=== PATIENT | female | born 1985 | race Caucasian/White ===

== ENCOUNTER 2016-10-25 16:25 | Observation (INO) ==
[2016-10-25] MEDS ORDERED: ONDANSETRON 4 MG/2 ML VIAL IV STA (17:14)
[2016-10-25] MEDS ORDERED: SODIUM CHLORIDE 0.9% 500 ML IV STA (17:14)
--- NOTE | 2016-10-25 17:18 | Emergency Department Note ---
Arrival - Arrival Chief Complaint: Urogenital - Female Stated Complaint: 5wks /blacked out ED Nursing Triage Note: NEAR SYNCOPE, APPROX 5 WEEKS GESTATION, LIGHT BLEEDING FOR COUPLE OF DAYS, BLEEDING WORSE TODAY. G1 Mode of Arrival: Wheelchair Limitations: No Limitations Source: Patient Time Seen by Provider: 10/25/16 17:14 - History of Present Illness HPI Narrative: This 31-year-old white female 6 weeks presents with a history of 1 week of intermittent vaginal spotting and bleeding. She initially had some spotting 1 week ago which within 24 hours became brown discharge that within another 24 hours resolved. However in the last 48 hours she has had resumption of spotting to the point of bleeding today associated with pelvic cramping. The patient denies clots or tissue in the discharge. She likewise denies dysuria, urgency, frequency, or hematuria. At the moment she appears in no acute medical distress. Onset (ago): week(s) (Patient presents 1 week post onset of symptoms) Allergies/Adverse Reactions: Allergies Allergy/AdvReac Type Severity Reaction Status Date / Time Sulfa (Sulfonamide Allergy RASH Verified 10/25/16 16:50 Antibiotics) Home Medications: Home Medications Medication Instructions Recorded Confirmed Type No122/Iron/Folic Acid 1 each PO QAM 10/25/16 10/25/16 History [ Multi Tablet] Review of System - Review of System 12 point system: reviewed and no additional remarkable complaints except as stated - Review of System Constitutional: Present: as per HPI Genitourinary female: Present: as per HPI Medical,Surgical,& Family Hx - Medical History Other: History of: Vancomycin-Resistant Enterococci - Family History Family History: Reports;: Family Cancer (grandparents, daddy), Family Diabetes ( uncle), Family Heart Disease (grandfather, both sides) - Social History Smoking Status: Never smoker Exam Physical Examination: GENERAL: Well developed, well nourished white female in no acute distress. HEENT: Normocephalic. No trauma. Moist mucous membranes. EOMI. PERRLA. ENT NML NECK: Supple. No adenopathy. CARDIAC: Regular. No murmurs. Heart rate 86 CHEST: Clear to auscultation. No respiratory distress. O2 sat 100% ABDOMEN: Soft. Periumbilical tenderness to compression. Active bowel sounds. EXTREMITIES: No trauma. Normal ROM. No pedal edema. SKIN: No diaphoresis. No rash. NEURO: Alert. Neuro intact. No focal deficits. Vital Signs: Vital Signs Temperature 98.8 F 10/25/16 16:57 Pulse Rate 86 10/25/16 16:57 Respiratory Rate 18 10/25/16 16:57 Blood Pressure 132/100 10/25/16 16:57 O2 Sat by Pulse Oximetry 100 10/25/16 16:46 Course - Reevaluation(s) Reevaluation #1: Discussed with patient the results of her studies and the need for hospitalization for definitive therapy. - Consultations Consultation #1: Discussed with Dr. Anand who will see the patient in the ER. Consultation #2: Dr. Anand will admit for further evaluation and treatment. Results - Labs CBC & BMP: 10/25/16 17:14 10/25/16 17:14 Labs: I have reviewed the laboratory and noted its normalcy although the hCG is probably less than would be expected at this point in time. - Diagnostic Findings Procedure: Ultrasound: image reviewed by me, report reviewed by me (OB: Evidence of ruptured ectopic on the right adnexa with blood in the pelvis as well as probable aborting IUP.) Disposition Clinical Impression: Rupture ectopic , Spontaneous Case discussed with: patient, patient's family Disposition: Still a Patient Condition: Guarded Time of Disposition: 20:12
[2016-10-25 17:27] LABS: Basophils % 0.4 % (0.0-0.8); Eosinophils # 0.1 10*3/uL (0.0-0.87); Eosinophils % 0.5 % (0.00-10.9); Hematocrit 37.2 VOL% (35.7-47.0); Hemoglobin 12.4 GM/DL (12.0-16.0); Immature Granulocytes % 0.2 %; Immature Granulocytes Absolute 0.02 #; Lymphocytes # 2.2 10*3/uL (1.4-4.0); Lymphocytes % 24.3 % (21.3-54.2); Mean Corpuscular HGB Conc 33.3 GM/DL (32-36); Mean Corpuscular Hemoglobin 30 PG (27-34); Mean Corpuscular Volume 91.2 FL (87-102); Mean Platelet Volume 9.9 FL (9.6-12.0); Monocytes # 0.5 10*3/uL (0.11-0.8); Monocytes % 5.9 % (1.7-12.7); Neutrophils # 6.3 10*3/uL (1.4-7.4); Neutrophils % 68.7 % (38.7-73.9); Platelet Count 221 T/CUMM (130-400); Red Blood Count 4.08 MC/CUMM (3.8-5.5); Red Cell Distribution Width 12.3 % (9.3-17.3); White Blood Count 9.2 T/CUMM (4-12)
[2016-10-25 17:37] LABS: PT Patient Result 10.6 SECS; Partial Thromboplastin Time 23.3 SECS (0-40)
[2016-10-25 18:00] LABS: Alanine Aminotransferase 43 U/L (13-56); Albumin 4.2 G/DL (3.4-5.0); Alkaline Phosphatase 64 U/L (45-117); Aspartate Amino Transferase 33 U/L (0-37); Bilirubin,Total < 0.39 MG/DL (0.2-1.0); Blood Urea Nitrogen 13 MG/DL (7-18); Glucose 100 MG/DL (74-106); Osmolality,Calculated 278.4 MOS/KG (273-304); Potassium 3.7 MMOL/L (3.5-5.1); Sodium 140 MMOL/L (136-145); Total Protein 7.3 G/DL (6.4-8.3)
[2016-10-25] MEDS ORDERED: ONDANSETRON 4 MG/2 ML VIAL ONE ×2 (18:02→22:20)
[2016-10-25 18:31] LABS: Apearance,Urine CLEAR (Clear); Bilirubin,Urine Negative (Negative); Blood, Urine Negative (Negative); Glucose,Urine (UA) Negative (Negative); Hyaline Casts,Urine 1 /LPF (0-3); Ketones,Urine 5 mg/dL (Negative); Mucus,Urine Occasional /LPF (Occasional); Nitrite,Urine Negative (Negative); Protein,Urine Negative; RBC,Urine <1 /HPF (0-4); Urine Color Yellow (Yellow); Urine Urobilinogen < 2.0 EU/DL (0.2-1.0); WBC,Urine 4 /HPF (0-6)
--- NOTE | 2016-10-25 19:21 | Ultrasound Report ---
History: Vaginal bleeding Date: 10/25/2016 Study: Pelvic ultrasound using both transabdominal and transvaginal technique Comparison exam: October 21, 2016 ultrasound Real-time ultrasound images are captured and archived. Transabdominal technique pelvic ultrasound: The anteverted uterus measures 81 x 37 x 46 mm. There is no obvious intrauterine gestational sac using transabdominal technique. There is a moderate amount of complex echogenicity suggesting complex fluid in the pelvis, presumably hemorrhagic. The right ovary measures 32 x 35 x 31 mm and contains a 26 mm complex septated cyst. The left ovary measures 34 x 29 x 23 mm and contains a 21 mm cyst. Because of nonvisualization of gestational sac and complex fluid, transvaginal images were subsequently acquired. Transvaginal ultrasound: There is a 23 x 15 x 19 mm complex right adnexal mass, separate from what is thought to be the ovary. There is a 3.8 mm cystic area in the endocervical canal. There is no normal intrauterine gestational sac. Impression: Findings suspicious for potential ruptured ectopic , given the presence of right adnexal mass and complex pelvic fluid. Initially discussed with Dr. Carrera by telephone at 7:00 PM and then with Dr. Anand by telephone at 7:15 PM PROCEDURE INTERPRETED AT [facility] Final Report Signed by: Dr. Maria Dolores Newton
--- NOTE | 2016-10-25 20:06 | OB/GYN History & Physical ---
History of Present Illness Chief complaint: pelvic pain, bleeding , early IUP History of present illness: Ms. Baker is a 31 year old female G1Po who was seen earlier this week as a f/ u for an early . She should be about 5 weeks . She said she passed out in the elevator a few hours ago. She started bleeding after having had intercourse a couple of days ago and then started having pain today. Her Bhcg has been rising, but it has not risen appropriately from 4 days ago to today. Home Medications Medication Instructions Recorded Confirmed Type No122/Iron/Folic Acid 1 each PO QAM 10/25/16 10/25/16 History [ Multi Tablet] Allergies Allergy/AdvReac Type Severity Reaction Status Date / Time Sulfa (Sulfonamide Allergy RASH Verified 10/25/16 16:50 Antibiotics) Medical,Surgical,& Family Hx - Medical History Other: History of: Vancomycin-Resistant Enterococci - Family History Family History: Reports;: Family Cancer (grandparents, daddy), Family Diabetes ( uncle), Family Heart Disease (grandfather, both sides) - Social History Smoking Status: Never smoker Exam RELEASE OF INFORMATION SPECIALIST - Constitutional Vitals: Vital Signs Temp Pulse Resp BP Pulse Ox 10/25/16 16:57 98.8 F 86 18 132/100 10/25/16 16:46 98.8 F 86 18 132/100 100 General appearance: mild distress - Respiratory Respiratory exam: Present: clear to auscultation bilaterally. Absent: accessory muscle use - Cardiovascular Cardiovascular exam: Present: regular rate and rhythm - GI/Abdominal GI/Abdominal exam: Present: distended, tenderness, rebound. Absent: guarding - Extremities Exam Extremities exam: Absent: calf tenderness - Neurological Exam Neurological exam: Present: alert, oriented X3 - Psychiatric Psychiatric exam: Present: normal affect, normal mood - Skin Skin exam: Present: normal color, warm Assessment and Plan (1) Ruptured ectopic Status: Acute Assessment and plan: The u/s was reviewed and the pt examined. her labs were reviewed and all is most c/w a ruptured ectopic . We will proceed with a laparoscopic removal of ectopic. The pt was made aware that if the ectopic is in the fallopian tube and the tube is rutpured the affected tube will need to be removed. She was also made aware that we may need to proceed with a suction Dilatation and curettage, especially if no ectopic is visualized. Risk/benefits /Alteranative/complications were reviewed with the pt and she is amenable to the procedure Current Visit: Yes Results - Labs CBC & BMP: 10/25/16 17:14 10/25/16 17:14
[2016-10-25] MEDS ORDERED: LACTATED RINGERS 1,000 ML IV SCH ×2 (20:30→22:30)
[2016-10-25] MEDS ORDERED: BUPIVACAINE 0.25% 50 ML VIAL ONE (21:44)
--- NOTE | 2016-10-25 22:12 | Anesthesia Post-Op ---
Anesthesia Post OP - Post Ansesthetic Evaluation Patient seen in post op: Yes Resp: within normal limits CV: within normal limits Mental: within normal limits Temp: within normal limits [id number]: within normal limits Nausea and Vomiting: within normal limits Pain: within normal limits
[2016-10-25] MEDS ORDERED: ONDANSETRON 4 MG/2 ML VIAL IV PRN ×2 (22:15→22:22)
[2016-10-25] MEDS ORDERED: HYDROmorphone 2 MG/1 ML VIAL IV PRN (22:15)
[2016-10-25] MEDS ORDERED: SEVOFLURANE 1 UNIT/15 MINUTE INH ONE (22:19)
[2016-10-25] MEDS ORDERED: HYDROmorphone 2 MG/1 ML VIAL ONE (22:19)
[2016-10-25] MEDS ORDERED: PROPOFOL 200 MG/20 ML VIAL IV ONE (22:19)
[2016-10-25] MEDS ORDERED: NEOSTIGMINE 10 MG/10 ML VIAL ONE (22:20)
[2016-10-25] MEDS ORDERED: KETOROLAC 30 MG/1 ML VIAL ONE (22:20)
[2016-10-25] MEDS ORDERED: MIDAZOLAM 2 MG/2 ML VIAL ONE (22:20)
[2016-10-25] MEDS ORDERED: ACETAMINOPHEN 1,000 MG/100 ML VIAL IV ONE (22:20)
[2016-10-25] MEDS ORDERED: DEXAMETHASONE 10 MG/1 ML VIAL ONE (22:20)
[2016-10-25] MEDS ORDERED: ROCURONIUM 100 MG/10 ML VIAL IV ONE (22:20)
[2016-10-25] MEDS ORDERED: fentaNYL 100 MCG/2 ML VIAL ONE (22:20)
[2016-10-25] MEDS ORDERED: LACTATED RINGERS 1,000 ML IV ONE (22:20)
[2016-10-25] MEDS ORDERED: GLYCOPYRROLATE 0.4 MG/2 ML VIAL ONE (22:20)
--- NOTE | 2016-10-25 22:20 | Operative Note ---
Date of procedure: 10/25/16 Pre-op diagnosis: ectopic Post-op diagnosis: same Procedure: Laparoscopic right partial salpingectomy Findings: Blood in the pelvic cul-de-sac and right edematous fallopian tube consistent with the ectopic findings on ultrasound. Both ovaries mildly enlarged but normal uterus normal. Procedure is as follows: Risk benefits alternatives and complications were reviewed with the patient and her and they were amenable to the procedure the patient was thus taken back to the operating room and general anesthesia was found to be adequate and she was prepped and draped in the usual sterile fashion carefully placed in Ruiz stirrups. A Toscano catheter was placed in the patient's bladder a speculum was placed and patient vagina anterior lip of cervix grasped with single-tooth tenaculum and acorn manipulator was carefully introduced into the cervix. Attention was turned into the abdomen after change of gloves and the umbilicus was identified just above the umbilicus a small incision was made a Veress needle was carefully introduced into the abdominal cavity where intra-abdominal placement was confirmed with a saline filled syringe. A pneumoperitoneum was obtained once that was obtained a 5 mm trocar was carefully introduced into the abdomen where intra-abdominal placed was confirmed with the scope. A survey of the abdomen showed blood in the cul-de-sac no injury was noted upon entry into the abdomen the appendix was not visualized. Under direct visualization approximately 2 minute centimeters above the symphysis pubis a 11 mm trocar was carefully introduced . Using the suction the blood was suctioned out of the cul-de-sac and both fallopian tubes were visualized in the right was obviously edematous likely due to the ectopic that was trying to expel. Using the PK the end of the fallopian tube that was edematous and contained the ectopic was cauterized and cut completely using an Endosac through the 11mm trocar the ectopic was scooped into the bag and easily removed from the site. The rest of the blood clots and blood was suctioned out of the cul-de-sac copious irrigation was performed and hemostasis was assured. Once this was done the trochars were removed the pneumoperitoneum was released 0 Vicryl was used to repair the fascia both in the 10 mm trocar site and the 5 mm trocar site. 4-0 Monocryl was used subcuticularly to repair the skin. Sponge lap and instrument counts were correct 3. A total of 5 cc of quarter percent plain Marcaine was used at each site to help with pain control. Attention was then turned to the pelvis where the instruments were removed from the patient's pelvis and the Toscano catheter was as well. The patient went to the recovery room in stable condition. Surgeon / Physician: Shannon Lopes Results - Labs CBC & BMP: 10/25/16 17:14 10/25/16 17:14 Discharge Plan - Discharge Data Disposition: Still a Patient - Discharge Medications No Action No122/Iron/Folic Acid [ Multi Tablet] 1 each PO QAM - Follow Up or Referral - Forms/Instructions
[2016-10-25] MEDS ORDERED: BISACODYL 10 MG SUPP RECTAL PRN (22:22)
[2016-10-25] MEDS ORDERED: IBUPROFEN 800 MG TABLET PO PRN (22:22)
[2016-10-25] MEDS ORDERED: DOCUSATE SODIUM 100 MG CAPSULE PO PRN (22:22)
[2016-10-25] MEDS ORDERED: ACETAMINOPHEN 325 MG TABLET PO PRN (22:22)
[2016-10-25] MEDS ORDERED: BENZOCAINE/MENTHOL LOZENGE 18/BOX PO PRN (22:22)
[2016-10-25] MEDS ORDERED: MAGNESIUM HYDROXIDE SUSP 30 ML UDCUP PO PRN (22:22)
[2016-10-25] MEDS: LACTATED RINGERS 1,000 ML IV SCH (23:12)
[2016-10-26] MEDS: LACTATED RINGERS 1,000 ML IV SCH (08:28)
[2016-10-26 12:11] VITALS: BP 101/57
--- NOTE | 2016-10-29 11:48 | Pathology Report from [facility] ---
ACCESSION # : [id number] PATIENT NAME : Vilma Wu ORDERING DR : Shannon Anand MD CLINICAL HX: Pelvic pain, bleeding, IUP` POST-OP DX: [facility] SPECIMEN INFO: RT fallopina tube w/ectopic GROSS DESCRIPTION: Received in formalin labeled "VILMA WU" is a segment of fimbriated fallopian tube measuring 3.5 x 0.6 cm. Also received in the specimen container is an aggregate of clotted blood and possible chorionic villi measuring 2 x 1.5 cm Geography Teacher sections are submitted in one cassette DIAGNOSIS FOR VILMA WU: RIGHT FALLOPIAN TUBE AND ECTOPIC: Fallopian tube with products of conception including chorionic villi, inflammation, blood. SERVICE DATE: 10/27/2016 REPORT DATE: 10/29/2016 PATHOLOGIST: Scotty Baker M.D. [facility]
== END 2016-10-26 11:00 | disposition home or self-care (01) ==
LOC: N.EDINP 16:25 → N.ED 16:25 → N.OB 20:44
PROVIDERS: ADMIT Obstetrics & Gynecology; ATTEND Obstetrics & Gynecology

== ENCOUNTER 2018-07-30 00:54 | Inpatient (IN) ==
[2018-07-30] MEDS ORDERED: ONDANSETRON 4 MG/2 ML VIAL IV PRN (01:12)
[2018-07-30] MEDS ORDERED: BUTORPHANOL 2 MG/ML VIAL IV PRN (01:12)
[2018-07-30] MEDS ORDERED: MEPERIDINE 50 MG/1 ML VIAL IM PRN (01:12)
[2018-07-30] MEDS: LACTATED RINGERS 1,000 ML IV SCH ×3 (01:15→08:05)
[2018-07-30] MEDS ORDERED: OXYTOCIN/LR 20 UNIT/1,000 ML BAG IV SCH (01:30)
[2018-07-30 01:32] LABS: Basophils % 0.3 % (0.0-0.8); Eosinophils % 0.4 % (0.00-10.9); Hemoglobin 11.4 GM/DL (12.0-16.0); Immature Granulocytes % 0.5 %; Immature Granulocytes Absolute 0.05 #; Lymphocytes # 2.2 10*3/uL (1.4-4.0); Lymphocytes % 22.3 % (21.3-54.2); Mean Corpuscular HGB Conc 33.5 GM/DL (32-36); Mean Corpuscular Hemoglobin 32 PG (27-34); Mean Corpuscular Volume 95.5 FL (87-102); Mean Platelet Volume 11.7 FL (9.6-12.0); Monocytes # 0.7 10*3/uL (0.11-0.8); Monocytes % 6.7 % (1.7-12.7); Neutrophils # 6.9 10*3/uL (1.4-7.4); Neutrophils % 69.8 % (38.7-73.9); Platelet Count 126 T/CUMM (130-400); Red Blood Count 3.56 MC/CUMM (3.8-5.5); Red Cell Distribution Width 12.9 % (9.3-17.3); White Blood Count 9.9 T/CUMM (4-12)
[2018-07-30] MEDS ORDERED: FAMOTIDINE 20 MG/2 ML VIAL IV ONE (01:53)
[2018-07-30] MEDS ORDERED: CITRIC ACID/SODIUM CITRATE 30 ML UDCUP PO ONE (01:53)
[2018-07-30] MEDS ORDERED: fentaNYL 2 MCG/ROPIV 0.2% EPID 100 ML EPIDURAL SCH (02:00)
[2018-07-30] MEDS ORDERED: ePHEDrine 50 MG/ML AMP ONE (02:09)
[2018-07-30] MEDS ORDERED: miSOPROStol 200 MCG TABLET ONE (02:10)
[2018-07-30 05:31] LABS: Apearance,Urine CLEAR (Clear); Bilirubin,Urine Negative (Negative); Blood, Urine Negative (Negative); Glucose,Urine (UA) Negative (Negative); Ketones,Urine Negative (Negative); Nitrite,Urine Negative (Negative); Protein,Urine Negative; RBC,Urine <1 /HPF (0-4); Urine Color Straw (Yellow); Urine Specific Gravity 1.005 (1.001-1.035); Urine Urobilinogen < 2.0 EU/DL (0.2-1.0); WBC,Urine <1 /HPF (0-6)
[2018-07-30] MEDS ORDERED: LIDOCAINE 1% 50 ML VIAL ONE (10:43)
[2018-07-30] MEDS ORDERED: METHYLERGONOVINE 0.2 MG/1 ML AMP ONE (10:43)
[2018-07-30 12:02] LABS: Cord Arterial Blood HCO3 20.1 MMOL/L
[2018-07-30 12:05] LABS: Cord Venous Blood HCO3 22.6 MMOL/L; Cord Venous Blood PCO2 47.4 MMHG; Cord Venous Blood PO2 23.4
[2018-07-30] MEDS: IBUPROFEN 800 MG TABLET PO PRN ×2 (12:59→23:12)
[2018-07-30] MEDS ORDERED: OXYTOCIN/LR 20 UNIT/1,000 ML BAG IV ONE (16:01)
[2018-07-30] MEDS ORDERED: BENZOCAINE 20%/MENTHOL 0.5% SPRAY 56 GM CAN TOP PRN (22:54)
[2018-07-31 06:05] LABS: Basophils # 0.1 10*3/uL (0.0-0.2); Basophils % 0.4 % (0.0-0.8); Eosinophils # 0.1 10*3/uL (0.0-0.87); Hematocrit 26.5 VOL% (35.7-47.0); Hemoglobin 8.8 GM/DL (12.0-16.0); Immature Granulocytes % 0.8 %; Immature Granulocytes Absolute 0.09 #; Lymphocytes # 2.3 10*3/uL (1.4-4.0); Lymphocytes % 19.7 % (21.3-54.2); Mean Corpuscular HGB Conc 33.2 GM/DL (32-36); Mean Corpuscular Hemoglobin 33 PG (27-34); Mean Corpuscular Volume 97.8 FL (87-102); Monocytes # 0.6 10*3/uL (0.11-0.8); Neutrophils # 8.4 10*3/uL (1.4-7.4); Neutrophils % 73.1 % (38.7-73.9); Red Blood Count 2.71 MC/CUMM (3.8-5.5); Red Cell Distribution Width 13.2 % (9.3-17.3); White Blood Count 11.5 T/CUMM (4-12)
[2018-07-31 06:16] LABS: Platelet Count 97 T/CUMM (130-400)
[2018-07-31 06:27] LABS: Hypochromasia 1+; Microcytosis Slight
[2018-07-31 06:28] LABS: Platelet Estimate Decreased
[2018-07-31] MEDS: IBUPROFEN 800 MG TABLET PO PRN ×3 (08:05→20:24)
[2018-07-31] MEDS: DOCUSATE SODIUM 100 MG CAPSULE PO SCH ×2 (08:05→20:24)
[2018-07-31] MEDS: FERROUS SULFATE 325 MG TABLET PO SCH ×2 (08:05→22:34)
[2018-08-01] MEDS: DOCUSATE SODIUM 100 MG CAPSULE PO SCH (08:51)
[2018-08-01] MEDS: FERROUS SULFATE 325 MG TABLET PO SCH (08:51)
[2018-08-01 11:56] VITALS: BP 122/78
== END 2018-08-01 14:18 | disposition home or self-care (01) | DRG 807 ==
LOC: N.LDOUT 00:54 → N.LD 00:55 → N.OB 14:52
PROVIDERS: ADMIT Obstetrics & Gynecology; ATTEND Obstetrics & Gynecology